=== PATIENT | female | born 1960 | race Caucasian/White ===

== ENCOUNTER 2022-11-01 07:27 | Inpatient (IN) | payer MEDICAID ==
[~2022-11-01] VITALS: Ht 165.1 cm; Wt 57.2 kg
[2022-11-01] VITALS (9 sets, daily range): BP systolic 102–116; BP diastolic 50–67
--- NOTE | 2022-11-01 07:29 | NUR ---
TO ER BED 7. RIN ANDINO FROM [facility] FOR LOW HGB/HCT 6.6/20.2 FROM LABS THAT WERE DRAWN YESTERDAY. PT STATED THAT SHE HAS HX OF ANEMAI AND HAS BEEN FEELING MY TIRED AND RESTLESS LATELY. PT IS A&OX4. ATTACHED TO SIGFOX. AWAITING MD XIONG.
--- NOTE | 2022-11-01 07:41 | NUR ---
IV ESTABLISHED L FA 18. LABS DRAWN AND COLLECTED TA BEDSIDE.
--- NOTE | 2022-11-01 07:44 | NUR ---
COVID TEST COLLECTED AND SENT
--- NOTE | 2022-11-01 07:55 | NUR ---
X RAY AT BEDSIDE
[2022-11-01 08:26] LABS: BASOPHILS % (AUTO) 1.4 % (0.0-2.0); EOSINOPHILS % (AUTO) 0.4 % (0.0-6.0); LYMPHOCYTES # (AUTO) 1.1 K/uL (0.8-4.8); LYMPHOCYTES % (AUTO) 33.7 % (20.0-44.0); MEAN CORPUSCULAR HGB CONC 32 g/dl (31.0-36.0); MEAN CORPUSCULAR VOLUME 98 fL (82-100); MONOCYTES # (AUTO) 0.5 K/uL (0.1-1.30); MONOCYTES % (AUTO) 16.8 % (2.0-12.0); NEUTROPHILS # (AUTO) 1.5 K/uL (1.8-8.9); NEUTROPHILS % (AUTO) 47.7 % (43.0-81.0); PLATELET COUNT (AUTO) 114 K/uL (150-450); RED BLOOD CELL COUNT(AUTO) 2.04 MIL/uL (4.0-5.2); WHITE BLOOD COUNT (AUTO) 3.2 K/uL (4.3-11.0)
[2022-11-01 08:30] LABS: CALCIUM, SERUM 9.5 mg/dL (8.5-10.1); CREATININE 0.9 mg/dL (0.6-1.3); POTASSIUM 4.4 mmol/L (3.5-5.1)
[2022-11-01 08:32] LABS: HEMOGLOBIN 6.4 g/dL (11.5-14.8)
[2022-11-01 08:33] LABS: HEMATOCRIT 20 % (33-45)
[2022-11-01 08:37] LABS: ALBUMIN 2.5 g/dL (3.4-5.0); BILIRUBIN,TOTAL 0.9 mg/dL (0.2-1.0); TOTAL PROTEIN, SERUM 6.8 g/dL (6.4-8.2)
--- NOTE | 2022-11-01 09:17 | NUR ---
BLOOD CONSENT SIGNED AND PLACE IN PT'S CHART
--- NOTE | 2022-11-01 09:22 | NUR ---
RN NOTE Patient remains stable with VS as follows: BP 110/57, DE 83, RR 18, Temp 99.7. No transfusion reactions noted. Will continue to monitor. Addendum: 11/01/22 at 1947 by RENÉ KILPATRICK RN CORRECTION: Time is 1921
[2022-11-01] MEDS ORDERED: ONDANSETRON HCL/PF 4 MG/2 ML VIAL IVP PRN (09:30)
[2022-11-01] MEDS ORDERED: MORPHINE SULFATE INJ 2 MG/ML DISP.SYRIN IV PRN (09:30)
--- NOTE | 2022-11-01 09:40 | NUR ---
329-1 IN 20MIN
--- NOTE | 2022-11-01 10:06 | NUR ---
report given to Anju rn to continue care.
[2022-11-01] MEDS ORDERED: AZITHROMYCIN 500 MG in IV D5W 250 ML IV ONE (10:30)
[2022-11-01] MEDS ORDERED: CEFTRIAXONE 1GM BAG (ER ONLY) 50 ML IV ONE (10:30)
--- NOTE | 2022-11-01 10:50 | NUR ---
PT TRASNPORTED TO THE FLOOR IN STABLE CONDITION.
[2022-11-01] MEDS: IV NS 0.9% 1,000 ML IV SCH (10:57)
--- NOTE | 2022-11-01 11:00 | NUR ---
ADMISSION NOTE Received patient from ER via gurney. Report given by DARA Fowler. Patient is A/O x 4, able to make needs known. Stable on room air, no SOB or s/s of distress noted. Patient oriented to room and how to use the call light. All belongings accounted for. IV access on LFA #18, NS hooked to run at 75 ml/hr. VS taken as follows: BP 105/60, SC 83, RR 20, Temp 98.6, SPO2 99%. Skin assessment done, photos taken and placed in chart. Safety precautions in place: bed in low, locked position; siderails up x 2; call light within reach. Will continue to monitor.
[2022-11-01 13:57] LABS: BAND % (MANUAL) 3 % (0.0-5.0); EOSINOPHILS % (MANUAL) 2 % (0-4); LYMPHOCYTES % (MANUAL) 37 % (16-48); MONOCYTES % (MANUAL) 9 % (0-11.0); NEUTROPHILS % (MANUAL) 48 (42-76)
[2022-11-01] MEDS: ACETAMINOPHEN 325 MG TABLET PO PRN (16:57)
--- NOTE | 2022-11-01 17:00 | NUR ---
RN NOTE Blood bank called to say blood is ready. VS taken, temp is at 100.4. Tylenol PRN given. Will picking supervisor blood when temperature goes down.
--- NOTE | 2022-11-01 17:30 | NUR ---
RN NOTE Patient's temp rechecked, 101.5. Cooling measures given. Will recheck temp again later.
[2022-11-01] MEDS: HYDROCODONE/APAP 5/325MG TABLET PO PRN ×2 (17:44→23:26)
--- NOTE | 2022-11-01 19:07 | NUR ---
RN NOTE Blood picked up from blood bank. VS prior to transfusion: BP 109/50, NV 85, RR 16, Temp 98.5. Blood verified by 2 RNs. Transfusion started. Will continue to monitor.
--- NOTE | 2022-11-01 19:22 | NUR ---
RN NOTE Patient remains stable with VS as follows: BP 110/57, FL 83, RR 18, Temp 99.7. No transfusion reactions noted. Will continue to monitor.
--- NOTE | 2022-11-01 19:47 | NUR ---
MS RN CLOSING NOTE Patient in bed, awake. A/O x 4, able to make needs known. Stable on room air, no SOB ors/s of distress noted. IV access on LFA #18, currently infusing PRBC. Patient denies any discomfort at this time. All needs attended to. Due meds given. Safety precautions in place: bed in low, locked position; siderails up x 2; call light within reach. Will endorse to scalloper nurse for KATHIA.
--- NOTE | 2022-11-01 19:55 | NUR ---
RN MS NOTES PATIENT IS ON BLOOD TRANSFUSION, NO BLOOD TRANSFUSION REACTION NOTED. WITH VITAL SIGNS OF BP:102/53, VA:79, TEMP:99.7, O2 SAT 99%, RR:20.WILL CONTINUE TO MONITOR.
--- NOTE | 2022-11-01 20:01 | NUR ---
RN MS NOTES RECEIVED PATIENT ON BED, ON MODERATE HIGH BACK REST POSITION. A/O X 4. ABLE TO VERBALIZED CONCERNS. ON BEDREST WITH WALKER. ON ROOM AIR SATURATING WELL. ON FULL CODE. WITH IV ACCESS AT LFA #18G WITH ONGOING BLOOD TRANSFUSION OR 1 UNIT PACKED RBC AT 100ML/HOUR PATIENT IS TOLERATING WELL. NO BLOOD TRANSFUSION REACTION NOTED AT THIS TIME. KEPT BED ON LOWER LOCKED POSITION, KEPT SIDE RIALS UP X 2 AT ALL TIME. KEPT CALL LIGHT WITHIN AT REACH. WILL CONTINUE TO MONITOR.
--- NOTE | 2022-11-01 20:25 | NUR ---
RN MS NOTES PATIENT IS ON BLOOD TRANSFUSION, NO BLOOD TRANSFUSION REACTION NOTED. WITH VITAL SIGNS OF BP:108/55, SC:79, TEMP:99.0, O2 SAT 99%, RR:20.WILL CONTINUE TO MONITOR
--- NOTE | 2022-11-01 20:55 | NUR ---
RN MS NOTES PATIENT IS ON BLOOD TRANSFUSION, NO BLOOD TRANSFUSION REACTION NOTED. WITH VITAL SIGNS OF BP:105/61, AR:76, TEMP:98.0, O2 SAT 99%, RR:20. WILL CONTINUE TO MONITOR
--- NOTE | 2022-11-01 22:20 | NUR ---
RN NOTES PATIENT BLOOD TRANSFUSION ENDED AND CONSUMED. NO BLOOD REACTION NOTED. WITH VITAL SIGNS OF BP:115/56, WI:76, RR:20, TEMP:98, O2 SAT:99%. WILL CONTINUE TO MONITOR.
[2022-11-01 23:35] LABS: HEMOGLOBIN 7.8 g/dL (11.5-14.8)
[2022-11-02] MEDS: IV NS 0.9% 1,000 ML IV SCH ×2 (02:45→12:16)
--- NOTE | 2022-11-02 06:37 | NUR ---
RN MS CLOSING NOTES PATIENT IS IN BED, ON MODERATE HIGH BACK REST POSITION. ABLE TO AMBULATE WITH ASSISTANCE AND WALKER. STATUS POST BLOOD TRANSFUSION I UNIT PRBC NO BT REACTION NOTED. NO PAIN OR DISCOMFORT AT THIS TIME. WITH IV ACCESS AT LEFT FA #18G WITH NS 1000ML AT 75ML/HOUR INFUSING WELL. ALL DUE MEDICATIONS GIVEN, ALL NEEDS ATTENDED, PM CARE RENDERED. KEPT BED ON LOWER LOCKED POSITION, KEPT SIDE RAILS UP X 2 ALL THE TIME. KEPT CALL LIGHT WITHIN AT REACH. WILL ENDORSED TO AM SHIFT FOR KATHIA.
[2022-11-02 06:43] LABS: BASOPHILS # (AUTO) 0.1 K/uL (0.0-0.2); BASOPHILS % (AUTO) 1.5 % (0.0-2.0); EOSINOPHILS % (AUTO) 0.3 % (0.0-6.0); HEMATOCRIT 24 % (33-45); HEMOGLOBIN 7.9 g/dL (11.5-14.8); LYMPHOCYTES # (AUTO) 1.1 K/uL (0.8-4.8); LYMPHOCYTES % (AUTO) 31.3 % (20.0-44.0); MEAN CORPUSCULAR HGB CONC 33 g/dl (31.0-36.0); MEAN CORPUSCULAR VOLUME 96 fL (82-100); MONOCYTES # (AUTO) 0.5 K/uL (0.1-1.30); MONOCYTES % (AUTO) 13.3 % (2.0-12.0); NEUTROPHILS # (AUTO) 1.9 K/uL (1.8-8.9); NEUTROPHILS % (AUTO) 53.6 % (43.0-81.0); PLATELET COUNT (AUTO) 112 K/uL (150-450); WHITE BLOOD COUNT (AUTO) 3.5 K/uL (4.3-11.0)
[2022-11-02 07:01] LABS: ALBUMIN 2.2 g/dL (3.4-5.0); BILIRUBIN,TOTAL 0.7 mg/dL (0.2-1.0); CALCIUM, SERUM 8.9 mg/dL (8.5-10.1); CREATININE 0.9 mg/dL (0.6-1.3); MAGNESIUM 2.4 mg/dL (1.8-2.4); POTASSIUM 4.1 mmol/L (3.5-5.1); TOTAL PROTEIN, SERUM 6.4 g/dL (6.4-8.2)
--- NOTE | 2022-11-02 07:30 | NUR ---
MS RN OPENING NOTES RECEIVED PT IN BED, AWAKE. A/O X 4, ABLE TO MAKE NEEDS KNOWN. ON ROOM AIR, TOLERATING WELL, NO SIGNS OF ACUTE RESPIRATORY DISTRESS. IV ACCESS ON THE LFA #18G WITH ONGOING IVF OF NS AT 75 ML/HR, INFUSING WELL. SAFETY MEASURES IMPLEMENTED: BED LOCKED AND IN LOWEST POSITION, CALL LIGHT AND TRAY TABLE WITHIN EASY REACH, SIDE RAILS UP X 2. WILL CONTINUE TO MONITOR.
[2022-11-02] MEDS: ACETAMINOPHEN 325 MG TABLET PO PRN (08:19)
--- NOTE | 2022-11-02 08:20 | NUR ---
RN NOTES PT VERBALIZED THAT HER LEFT NINA IS PAINFUL WITH SCALE OF 3/10, TYLENOL 650MG PO PRN GIVEN AT 0819. WILL CONTINUE TO MONITOR.
--- NOTE | 2022-11-02 08:46 | NUR ---
WOUND CARE CONSULT: PT EATING AT THIS TIME. ADMISSION DOCUMENTATION INDICATES INNER BUTTOCK REDNESS. RECOMMENDATIONS MADE FOR SKIN PROTECTION AND DISCUSSED WITH PT AND NURSING STAFF. CURRENT YAMILET SCORE IS 18. MD IN AGREEMENT WITH PLAN OF CARE.
[2022-11-02] MEDS ORDERED: Z GUARD REMEDY 4 OZ OINT TP PRN (09:00)
[2022-11-02] MEDS ORDERED: Z GUARD REMEDY 4 OZ OINT TP SCH (09:00)
[2022-11-02 12:17] LABS: HEMOGLOBIN 8.2 g/dL (11.5-14.8)
--- NOTE | 2022-11-02 15:25 | NUR ---
PATIENT ACCESS COORDINATOR NOTE PATIENT DISCHARGED TO [facility] IN STABLE CONDITION. A/O X 4, ABLE TO MAKE NEEDS KNOWN. ON ROOM AIR, TOLERATING WELL. V/S TAKEN AND RECORDED. IV ACCESS ON THE LFA REMOVED, DRY AND CLEAN DRESSING APPLIED ON SITE. ALL BELONGINGS ACCOUNTED FOR. DISCHARGE INSTRUCTIONS GIVEN TO PT AND SNF RN, VERBALIZED UNDERSTANDING. REPORT GIVEN TO NABOR DAIMOND. MD AND CHARGE NURSE AWARE OF DISCHARGE. PT LEFT THE UNIT @ 1530 VIA [employer] ACCOMPANIED BY 2 EMT'S.
[2022-11-02 16:54] LABS: BAND % (MANUAL) 6 % (0.0-5.0); LYMPHOCYTES % (MANUAL) 30 % (16-48); MONOCYTES % (MANUAL) 14 % (0-11.0); NEUTROPHILS % (MANUAL) 50 (42-76)
== END 2022-11-02 15:30 | DRG 663 ==
LOC: ER 07:34 → TRANSITION 09:35 → MED 09:41
PROVIDERS: ADMIT Internal Medicine; ATTEND Internal Medicine
PROC: 30233N1 Transfusion of Nonautologous Red Blood Cells into Peripheral Vein, Percutaneous Approach (ICD-10-PCS; principal; 2022-11-01)
DX: D64.81 Anemia due to antineoplastic chemotherapy (principal); R64 Cachexia; C78.89 Secondary malignant neoplasm of other digestive organs; C79.51 Secondary malignant neoplasm of bone; E44.0 Moderate protein-calorie malnutrition; D69.59 Other secondary thrombocytopenia; C78.7 Secondary malignant neoplasm of liver and intrahepatic bile duct; E88.09 Other disorders of plasma-protein metabolism, not elsewhere classified; T45.1X5A Adverse effect of antineoplastic and immunosuppressive drugs, initial encounter; Y92.89 Other specified places as the place of occurrence of the external cause; Z85.3 Personal history of malignant neoplasm of breast; Z87.81 Personal history of (healed) traumatic fracture; M81.0 Age-related osteoporosis without current pathological fracture; Z20.822 Contact with and (suspected) exposure to COVID-19; Y92.129 Unspecified place in nursing home as the place of occurrence of the external cause
CPT/HCPCS: 36415; 71045-TC; 80053-TC; 83735-TC; 84100-TC; 85025-TC; 85027-TC; 85730-TC; 86850-TC; 87040-TC; 87081-TC; A4223; C9803; G0378; J0456; J0696; J7030; J7040; J7060; P9016